=== PATIENT | female | born 1990 | race Caucasian/White ===

== ENCOUNTER 2017-03-02 11:56 | Emergency (ER) | payer OTHER ==
[~2017-03-02] VITALS: Ht 157.5 cm; Wt 66.0 kg
[2017-03-02] MEDS ORDERED: HYDROmorphone INJ 1 MG/ML SYR IV STA (12:01)
[2017-03-02] MEDS ORDERED: PROCHLORPERAZINE 5 MG/ML 2 ML VIAL IV STA (12:01)
[2017-03-02] MEDS ORDERED: SODIUM CHLORIDE 0.9% 1000ML 1,000 ML IV STA (12:01)
[2017-03-02 12:20] VITALS: Ht 157.5 cm; Wt 66.0 kg
[2017-03-02 12:20] LABS: HEMATOCRIT 29.6 % (37-47); MEAN CELL VOLUME 95.5 fL (80-100); MEAN CORPUSCULAR HEMOGLOBIN 31.9 pg (25-34); MEAN CORPUSCULAR HGB CONC 33.4 g/dl (32-36); MEAN PLATELET VOLUME 9.1 fL (7.4-10.4); PLATELET COUNT 220 K/uL (130-400); WHITE BLOOD COUNT 13.08 K/uL (4.8-10.8)
--- NOTE | 2017-03-02 12:35 | EMERGENCY ROOM VISIT NOTE ---
History Report prepared by Millie: Randall Parikh Under the Supervision of: Dr. George Alvarez M.D. First contact with patient: 11:59 Stated Complaint: ABDOMINAL PAIN History of Present Illness The patient is a 26 year old male who presents to the Emergency Room with complaints of constant abdominal pain that started this morning. The patient states that she is currently , though she has had ultrasounds, and they have not been able to find a heart beat. Her last period was December 31, and she was not taking any fertility drugs. She states that this is her third , and she has one living child and a termination. She additionally notes that she has been constipated recently, and she had tried to use a suppository and an enema. The patient states that the pain is worse when she is breathing, and she is currently nauseous. The patient's friend additionally states that the patient lost consciousness and blacked out earlier due to the pain. The patient denies any vaginal bleeding and any past abdominal surgeries. Source of History: patient Onset: this morning Position: abdomen Timing: constant Modifying Factors (Worsening): breathing Associated Symptoms: + LOC, + nausea Review of Systems See HPI for pertinent positives & negatives. A total of 10 systems reviewed and were otherwise negative. Past Medical & Surgical Medical Problems: (1) Termination of Family History Patient reports no known family medical history. Social History Marital Status: single Occupation Status: employed Current/Historical Medications Scheduled Docusate Sodium (Colace), 1 CAP PO BID Folic Acid (Folvite), 1 MG PO DAILY Venlafaxine Hcl (Venlafaxine Extended Rel), 2 CAP PO DAILY Scheduled PRN Oxycodone/Acetaminophen 5MG/325MG (Percocet 5MG/325MG), 1 TABLET PO Q4H PRN for Pain Trazodone Hcl (Trazodone), 50 MG PO for Pain Allergies Coded Allergies: Penicillins (Unverified Allergy, Severe, RASH, 03/02/17) Physical Exam Vital Signs Date Time Temp Pulse Resp B/P (MAP) Pulse Ox O2 Delivery O2 Flow Rate FiO2 03/02/17 15:48 36.4 72 20 104/63 100 Room Air 03/02/17 15:48 36.4 72 20 104/63 (77) 100 Room Air 10 03/02/17 15:40 74 16 112/58 100 Room Air 03/02/17 15:30 72 20 112/58 100 Room Air 03/02/17 15:20 72 20 115/65 100 Oxymask 10 03/02/17 15:10 82 20 117/67 100 Oxymask 10 03/02/17 15:03 36.4 83 20 123/68 100 Oxymask 10 03/02/17 13:20 62 16 97/53 97 03/02/17 13:15 60 22 97/53 96 03/02/17 13:00 58 22 102/58 100 03/02/17 12:43 61 18 110/53 97 Room Air 03/02/17 12:07 36.6 60 20 101/70 100 Room Air 03/02/17 12:07 100 Room Air 03/02/17 12:05 54 Physical Exam GENERAL: Patient is a healthy-appearing well-nourished female HEAD: Normocephalic atraumatic EYES: Ocular movements intact pupils equal and react to light OROPHARYNX mucous membranes are moist no exudates present no erythema or edema present NECK: Supple no nuchal rigidity CHEST: Good equal expansion LUNGS: Clear and equal to auscultation CARDIAC: Normal S1 and S2 ABDOMEN: Exquisite tenderness to palpation. The patient's pain is out of proportion to the exam. Soft no guarding BACK: No CVA tenderness EXTREMITIES: No pain upon palpation normal muscle strength in all groups no clubbing cyanosis or edema NEURO: Patient is following commands and answering questions appropriately. Alert and oriented x3 Cranial Nerves 2-12 grossly intact Medical Decision & Procedures ER Provider Diagnostic Interpretation: Radiology results as stated below per my review and radiologist interpretation: <14 WKS SINGLE, PELVIC ULTRASOUND HISTORY: Pt c/o diffuse abdominal pain TECHNIQUE: Transabdominal scanning of the pelvis was performed. COMPARISON STUDY: None. FINDINGS: The uterus measures 7.8 x 4.8 x 5.8 cm. The endometrial stripe is heterogeneous and thickened up to 1.6 cm. Small amount of fluid within the endometrium. Within the left adnexa there is a 4.0 x 3.4 x 3.5 cm gestational sac containing a pole and yolk sac. The heart rate is [address] [place]-rump length is 1.48 cm. This is consistent with a 7 week and 6 day ectopic . Complex fluid within the left adnexa consistent with hemorrhage. The patient's LIVE GAMES DEALER was in the room during scanning and into the examination early to take the patient to the operating room. IMPRESSION: Left adnexal ectopic as described above with a small to moderate amount of hemoperitoneum consistent with a ruptured ectopic . The patient's physician was in the room during scanning and immediately went to the operating room following the scan. Electronically signed by: Donny Lamar M.D. 03/02/2017 1:03 PM Dictated Date/Time: 03/02/2017 12:59 PM Laboratory Results 03/02/17 12:11 Red Blood Count 3.10, Mean Corpuscular Volume 95.5, Mean Corpuscular Hemoglobin 31.9, Mean Corpuscular Hemoglobin Concent 33.4, Mean Platelet Volume 9.1, Neutrophils (%) (Auto) 82.2, Lymphocytes (%) (Auto) 9.9, Monocytes (%) (Auto) 6.7, Eosinophils (%) (Auto) 0.6, Basophils (%) (Auto) 0.2, Neutrophils # (Auto) 10.76, Lymphocytes # (Auto) 1.30, Monocytes # (Auto) 0.87, Eosinophils # (Auto) 0.08, Basophils # (Auto) 0.02 03/02/17 14:35 03/02/17 12:11 Test 03/02/17 12:11 03/02/17 12:24 White Blood Count 13.08 K/uL (4.8-10.8) Red Blood Count 3.10 M/uL (4.2-5.4) Hemoglobin 9.9 g/dL (12.0-16.0) Hematocrit 29.6 % (37-47) Mean Corpuscular Volume 95.5 fL (80-100) Mean Corpuscular Hemoglobin 31.9 pg (25-34) Mean Corpuscular Hemoglobin Concent 33.4 g/dl (32-36) Platelet Count 220 K/uL (130-400) Mean Platelet Volume 9.1 fL (7.4-10.4) Neutrophils (%) (Auto) 82.2 % Lymphocytes (%) (Auto) 9.9 % Monocytes (%) (Auto) 6.7 % Eosinophils (%) (Auto) 0.6 % Basophils (%) (Auto) 0.2 % Neutrophils # (Auto) 10.76 K/uL (1.4-6.5) Lymphocytes # (Auto) 1.30 K/uL (1.2-3.4) Monocytes # (Auto) 0.87 K/uL (0.11-0.59) Eosinophils # (Auto) 0.08 K/uL (0-0.5) Basophils # (Auto) 0.02 K/uL (0-0.2) RDW Standard Deviation 44.7 fL (36.4-46.3) RDW Coefficient of Variation 12.9 % (11.5-14.5) Immature Granulocyte % (Auto) 0.4 % Immature Granulocyte # (Auto) 0.05 K/uL (0.00-0.02) Prothrombin Time 10.9 SECONDS (9.0-12.0) Prothromb Time International Ratio 1.0 (0.9-1.1) Activated Partial Thromboplast Time 23.0 SECONDS (21.0-31.0) Partial Thromboplastin Ratio 0.9 Est Creatinine Clear Calc Drug Dose 93.0 ml/min Estimated GFR () 115.4 Estimated GFR (Non- 99.5 BUN/Creatinine Ratio 11.8 (10-20) Calcium Level 7.5 mg/dl (8.5-10.1) Total Bilirubin 0.5 mg/dl (0.2-1) Aspartate Amino Transf (AST/SGOT) 10 U/L (15-37) Alanine Aminotransferase (ALT/SGPT) 14 U/L (12-78) Alkaline Phosphatase 48 U/L (45-117) Total Protein 5.7 gm/dl (6.4-8.2) Albumin 3.1 gm/dl (3.4-5.0) Globulin 2.6 gm/dl (2.5-4.0) Albumin/Globulin Ratio 1.2 (0.9-2) Human Chorionic Gonadotropin, Quant 36743 mIU/mL Bedside Hemoglobin 9.9 g/dl (12.0-16.0) Bedside Hematocrit 29 % (37-47) Bedside Sodium 140 mEq/L (135-144) Bedside Potassium 3.7 mEq/L (3.3-5.0) Bedside Chloride 104 mEq/L (101-112) Bedside Total CO2 23 mEq/l (24-31) Anion Gap 17.0 mmol/L (16-25) Bedside Blood Urea Nitrogen 8 mg/dl (7-18) Bedside Creatinine 0.9 mg/dl (0.6-1.3) Bedside Glucose (other) 105 mg/dl (70-99) Bedside Ionized Calcium (Nathan) 1.12 mmol/l (1.12-1.32) Labs reviewed by ED physician. Medications Administered Medications (Trade) Dose Ordered Sig/Laurie Route Start Time Stop Time Status Last Admin Dose Admin Hydromorphone HCl (Dilaudid Inj) 1 mg NOW STAT IV 03/02/17 12:01 03/02/17 12:04 DC 03/02/17 12:10 1 MG Prochlorperazine Edisylate (Compazine Inj) 5 mg NOW STAT IV 03/02/17 12:01 03/02/17 12:04 DC 03/02/17 12:09 5 MG Sodium Chloride 1,000 ml @ 999 mls/hr Q1H1M STAT IV 03/02/17 12:01 03/02/17 13:01 DC 03/02/17 12:09 999 MLS/HR ED Course 1159: Past medical records reviewed. The patient was evaluated in room B11. A complete history and physical examination was performed. FAST exam was positive. 1201: Sodium Chloride 1000 ml @ 999 mls/hr, Compazine 5mg IV, Dilaudid 1mg IV 1210: I discussed the patient's case with Dr. Lala, LIVE GAMES DEALER, and she will com in to evaluate the patient, and the recommends taking the patient to the OR. Medical Decision Differential diagnosis: Etiologies such as ectopic , appendicitis, diverticulitis, PUD, biliary pathology, UTI, pancreatitis, obstruction, mesenteric ischemia, aortic pathology, infections, inflammatory bowel disease, renal colic, as well as others were entertained. This is a 26-year-old female who presents emergency department after syncopal episode after the onset of severe abdominal pain at home. Upon arrival to the emergency department the patient is hypotensive and has severe pain on abdominal examination. Based on this I FAST exam was immediately initiated and the patient has free fluid in her abdomen. I believe that the patient has a ruptured ectopic and immediately called Dr Beth. The patient was typed and screened and sent for an ultrasound patient was then sent to the operating room. An IV was established, the patient is given normal saline bolus , Dilaudid, Zofran. Repeat examination revealed improvement patient's symptoms. Medication Reconcilliation Current Medication List: was personally reviewed by me Blood Pressure Screening Patient's blood pressure: Normal blood pressure Consults Time Called: 1209 Consulting Physician: Dr. Lala, LIVE GAMES DEALER Returned Call: 1210 I discussed the patient's case with Dr. Lala, LIVE GAMES DEALER, and she will com in to evaluate the patient, and the recommends taking the patient to the OR. Impression Primary Impression: Ruptured ectopic Critical Care I have personally spent greater than 30 minutes of critical care time in the direct management of this patient. This includes bedside care, interpretation of diagnostic studies, and testing, discussion with consultants, patient, and family members, and other required patient management activities. This 30 minutes is in excess of all separately billable procedures. Scribe Attestation The scribe's documentation has been prepared under my direction and personally reviewed by me in its entirety. I confirm that the note above accurately reflects all work, treatment, procedures, and medical decision making performed by me. Departure Information Dispostion Being Evaluated By Surgeon Prescriptions Oxycodone/Acetaminophen 5MG/325MG (PERCOCET 5MG/325MG) Tab 1 TABLET PO Q4H Y for Pain, #10 TAB Prov: Shanti Lala MD 03/02/17
[2017-03-02 12:36] LABS: PARTIAL THROMBOPLASTIN RATIO 0.9; PROTHROMBIN TIME (PATIENT) 10.9 SECONDS (9.0-12.0)
[2017-03-02 12:36] LABS: ISTAT CREATININE 0.9 mg/dl (0.6-1.3); ISTAT HEMOGLOBIN 9.9 g/dl (12.0-16.0); ISTAT IONIZED CALCIUM 1.12 mmol/l (1.12-1.32)
[2017-03-02 12:40] LABS: BASO % 0.2 %; BASO ABS # 0.02 K/uL (0-0.2); COMPLETE YES; EOS % 0.6 %; IG% 0.4 %; LYMPH % 9.9 %; MONO % 6.7 %; NEUT % 82.2 %
[2017-03-02 12:41] LABS: BUN/CREATININE RATIO 11.8 (10-20); CALCIUM 7.5 mg/dl (8.5-10.1); CREATININE 0.81 mg/dl (0.60-1.20)
[2017-03-02 12:44] LABS: ALB/GLOB RATIO 1.2 (0.9-2)
[2017-03-02] MEDS ORDERED: LACTATED RINGER'S 1000ML 1,000 ML IV SCH (12:46)
--- NOTE | 2017-03-02 13:04 | DIAGNOSTIC IMAGING REPORT ---
<14 WKS SINGLE, PELVIC ULTRASOUND HISTORY: Pt c/o diffuse abdominal pain TECHNIQUE: Transabdominal scanning of the pelvis was performed. COMPARISON STUDY: None. FINDINGS: The uterus measures 7.8 x 4.8 x 5.8 cm. The endometrial stripe is heterogeneous and thickened up to 1.6 cm. Small amount of fluid within the endometrium. Within the left adnexa there is a 4.0 x 3.4 x 3.5 cm gestational sac containing a pole and yolk sac. The heart rate is 144 bpm. [place]-rump length is 1.48 cm. This is consistent with a 7 week and 6 day ectopic . Complex fluid within the left adnexa consistent with hemorrhage. The patient's MINE MOTOR ENGINEER was in the room during scanning and into the examination early to take the patient to the operating room. IMPRESSION: Left adnexal ectopic as described above with a small to moderate amount of hemoperitoneum consistent with a ruptured ectopic . The patient's physician was in the room during scanning and immediately went to the operating room following the scan. Electronically signed by: Donny Lamar M.D. 03/02/2017 1:03 PM Dictated Date/Time: 03/02/2017 12:59 PM
[2017-03-02] MEDS ORDERED: PROPOFOL IV EMULSION 10 MG/ML 20 ML VIAL IV ONE ×2 (13:05→15:23)
[2017-03-02] MEDS ORDERED: DEXAMETHASONE SOD INJ 4 MG/ML VIAL ONE ×2 (13:05→14:05)
[2017-03-02] MEDS ORDERED: PHENYLEPHRINE HCL INJ 10 MG/ML VIAL ONE (13:05)
[2017-03-02] MEDS ORDERED: GLYCOPYRROLATE INJ 0.2 MG/ML VIAL ONE (13:05)
[2017-03-02] MEDS ORDERED: EpHEDrine SULFATE INJ 50 MG/ML AMP ONE (13:05)
[2017-03-02] MEDS ORDERED: LIDOCAINE HCL 2% 2 ML VIAL (20MG/ML) ONE (13:05)
[2017-03-02] MEDS ORDERED: NEOSTIGMINE METHYLSULFATE 5 MG/5 ML SYR ONE (13:05)
[2017-03-02] MEDS ORDERED: ONDANSETRON INJ 2 MG/ML 2 ML VIAL ONE (13:05)
[2017-03-02] MEDS ORDERED: SUCCINYLCHOLINE CHLORIDE 20 MG/ML 10 ML VIAL IV ONE (13:05)
[2017-03-02] MEDS ORDERED: FENTANYL CITRATE INJ 50 MCG/1 ML 2 ML VIAL ONE (13:06)
[2017-03-02] MEDS ORDERED: MIDAZOLAM HCL 1 MG/ML 2ML VIAL ONE ×2 (13:06→13:10)
[2017-03-02 13:20] VITALS: O2SAT 97
[2017-03-02] MEDS ORDERED: FOLI1TAB7 PO (13:21)
[2017-03-02] MEDS ORDERED: VENL37.593 PO (13:21)
[2017-03-02] MEDS ORDERED: DOCU-94 PO (13:21)
--- NOTE | 2017-03-02 13:37 | HISTORY & PHYSICAL EXAMINATION ---
DATE OF ADMISSION: 03/02/2017 CHIEF COMPLAINT: Abdominal pain and syncopal episode in the setting of early . HISTORY OF PRESENT ILLNESS: This is a 26-year-old female G3, P1-0-1-1 with 1 living child and 1 termination, who presents with a complaint of acute onset of abdominal pain this morning followed by a syncopal episode. The patient relates that she is currently with an LMP around mid December and a likely timing of conception at the very end of December. Of note, the patient is stationed with the in [facility]. She states that she has received limited care through the systems; however, on ultrasound previously done by the , they were unable to identify a heartbeat nor confirm intrauterine location of the . REVIEW OF SYSTEMS: Negative other than what is discussed above. SOCIAL HISTORY: This is a single female in the located in [facility]; however, returned to [place] due to family in the local area and she is accompanied today by her sister. ALLERGIES: PENICILLIN, WHICH CAUSES A RASH. CURRENT MEDICATIONS: Include Wellbutrin, trazodone as needed, vitamin and an iron supplement. PAST MEDICAL HISTORY: She denies any medical problems. PAST SURGICAL HISTORY: Includes breast augmentation, wisdom teeth and tonsils and adenoids. FAMILY HISTORY: Noncontributory. PHYSICAL EXAMINATION: VITAL SIGNS: In the ER, she has a temperature of 36.6, pulse of 60, respiration of 20, BP of 101/70, and pulse ox is 100% on room air. GENERAL: As I examined the patient, she is in the ultrasound suite undergoing a transabdominal ultrasound. She is lying supine. She is a well-nourished appearing female of stated age, in some discomfort. HEAD: Normocephalic. NECK: Supple. CHEST: Nontender with good bilateral expansion. Lungs are not auscultated at this time; however, her respirations are nonlabored and normal in rate. ABDOMEN: Soft, but exquisitely tender. The patient is grimacing and wincing as the transabdominal ultrasound is done. She is apparently more tender with pressing in the left lower quadrant; however, she is sensitive to any pressure on the entire abdomen. Although, I am asking her questions as she is undergoing the exam and successfully distracting her. It is evident that she is in legitimate discomfort. She continues to react to the exam even while attempting to answer my questions. EXTREMITIES: Appear normal. NEUROLOGIC: The patient has no obvious deficits. PSYCHIATRIC: The patient is in an appropriate mood and affect. She is able to answer my questions appropriately. LABORATORY DATA: Results include a white count of 13, hemoglobin of 9.9, and platelets of 220. Coag profile appears normal. Chemistries appeared normal. Blood type is pending however the patient states confidently that she is B positive and did NOT require rhogam with prior pregnancies. MEDICATIONS: I note that the patient was given 1 mg of IV Dilaudid prior to her ultrasound, which should be impacting her as I am examining her. She states that the pain is improved from what it was prior; however, obviously it has not gone. IMAGING STUDIES: FAST scan done in the ER by Dr. Alvarez was notable for significant free fluid in the abdomen. The pelvic ultrasound, which I watched in realtime, appears to show an obvious fetus in what appears to be the left tube with a normal heartbeat. The fetus is measuring 7 weeks 6 days crown rump length with a heartbeat in the 140s. The total size is approximately 3.5 x 4 cm. There is a significant free fluid around both the right and left adnexa and the uterus filling the pelvis. ASSESSMENT AND PLAN: This is a 26-year-old G3, P1-0-1-1 at approximately 8 weeks, who appears to have a rupturing left ectopic . I have discussed my findings with the patient. She is in agreement with the plan to go to the operating room for a laparoscopic left salpingectomy, possible conversion to laparotomy with evacuation of hemoperitoneum. She and her sister were both present for discussion of the risks and benefits of surgery. They asked appropriate questions and they did sign consent. They do understand that there is a risk for conversion to open procedure, which I estimated at about 5% given the extraordinary size of her hemoperitoneum. In addition, they understand that there may be an impact on her future fertility, although we do expect that she will retain at least 1 functional tube and most likely 2 ovaries. JULIETH
[2017-03-02] MEDS ORDERED: RANITIDINE HCL 25 MG/ML INJ ONE (14:05)
[2017-03-02] MEDS ORDERED: ROCURONIUM BROMIDE 10 MG/ML 5 ML VIAL IV ONE (14:29)
[2017-03-02] MEDS ORDERED: LABETALOL HCL IV 5 MG/ML 20ML IV PRN (14:45)
[2017-03-02] MEDS ORDERED: HYDROmorphone INJ 1 MG/ML SYR IV PRN (14:45)
[2017-03-02] MEDS ORDERED: EpHEDrine SULFATE INJ 50 MG/ML AMP IV PRN (14:45)
[2017-03-02] MEDS ORDERED: MEPERIDINE HCL 25 MG/ML CARP IV PRN (14:45)
[2017-03-02] MEDS ORDERED: ONDANSETRON INJ 2 MG/ML 2 ML VIAL IV PRN (14:45)
[2017-03-02] MEDS ORDERED: ATROPINE SULFATE 0.1 MG/ML 5ML SYR IV PRN (14:45)
[2017-03-02] MEDS ORDERED: FENTANYL CITRATE INJ 50 MCG/1 ML 2 ML VIAL IV PRN (14:45)
[2017-03-02] MEDS ORDERED: SODIUM CHLORIDE 0.9% 1000ML 1,000 ML IV SCH (15:09)
[2017-03-02] MEDS ORDERED: OXYC-57 PO ×2 (15:11→15:39)
--- NOTE | 2017-03-02 15:14 | Discharge Instructions ---
Discharge Instructions Date of Service Mar 02, 2017. Visit Reason for Visit: Abdominal Pain Discharge Discharge Diagnosis / Problem: Ruptured ectopic Discharge Goals Goal(s): Specific goals Activity Recommendations Activity Limitations: per Instructions/Follow-up section Anesthesia . Post Anesthesia Instructions: If you have had General Anesthesia or IV Sedation: * Do not drive today. * Resume driving when surgeon permits. * Do not make important decisions or sign legal documents today. * Call surgeon for: 1. Temperature elevations greater than 101 degrees F. 2. Uncontrollable pain. 3. Excessive bleeding. 4. Persistent nausea and vomiting. 5. Medication intolerance (nausea, vomiting or rash). * For nausea and vomiting use only clear liquids such as: tea, soda, bouillon until nausea subsides, then gradually increase diet as tolerated. * If you have any concerns or questions, call your surgeon's office. If physician is unavailable and it is an emergency, call 911 or go to the nearest emergency room. . Instructions / Follow-Up Instructions / Follow-Up ACTIVITY RECOMMENDATIONS: * Rest the first 2 days. You should be back to your normal activity levels by day 3, but I'd like you to stay home and rest here in [place] for one week before flying back to [place]. * No heavy lifting for 2 weeks. * No intercourse, tampons or douching for 2 weeks. * You may shower the next day. * Do not drive anytime that you are taking narcotic pain medicines. DIET: Nausea may occur in the immediate post-operative period. If so, take clear liquids such as tea, bouillon, apple juice until all nausea has subsided, then resume usual diet. MEDICATIONS: Resume previous medications unless instructed otherwise by your surgeon. Ibuprofen 200mg 2-3 tablets every 4-6 hours as needed -- OR -- Aleve 2 tablets every 8-12 hours as needed for post-operative discomfort Medications are over the counter. Tylenol may be used if above medications are contraindicated or not preferred. Medication should be taken with food or milk. Do not take on an empty stomach. I have provided 10 tablets of percocet to be used in the first 2 days postoperatively if the above meds are not sufficient to control your pain. SPECIAL CARE INSTRUCTIONS: * Check temperature twice daily for one week. report any elevation over 101 degrees. * You may experience some vagina spotting and/or bleeding. This is normal for 1 -2 weeks and should not be heavier than a normal period. If it is unusual in amount, call your physician. * Post-operative discomfort may consist of a sore throat, a "bloated" feeling and pain in the shoulders. These are normal symptoms, which usually only last for 2-3 days. FOLLOW UP VISIT: Call your doctor's office for a post-operative 4 week visit if not already scheduled. You will need to see an PRODUCE FIELD MERCHANDISER in [place] if you have already returned there by this time. Please avoid until after your menses have returned, which may take up to 3 months. If you have problems in the coming week, or before you return home, please contact my office at [phone] for help. Diet Recommendations Recommended Home Diet: no limitations, resume previous diet Procedures Procedures Performed: Laparoscopic Removal of Left Fallopian Tube with Ectopic Pending Studies Studies pending at discharge: no Medical Emergencies . Who to Call and When: Medical Emergencies: If at any time you feel your situation is an emergency, please call 911 immediately. . Non-Emergent Contact Non-Emergency issues call your: Primary Care Provider . . "Provider Documentation" section prepared by Shanti Lala. .
[2017-03-02] MEDS ORDERED: OXYCODONE/ACETAMINOPHEN 5-325 TAB PO PRN ×2 (15:15)
[2017-03-02] MEDS ORDERED: IBUPROFEN 600 MG TAB PO PRN (15:15)
[2017-03-02] MEDS ORDERED: KETOROLAC TROMETHAMINE 30 MG/ML VIAL IV. PRN (15:15)
--- NOTE | 2017-03-02 15:16 | [facility] Post Operative Brief Note ---
Immediate Operative Summary Operative Date Mar 02, 2017. Pre-Operative Diagnosis Ruptured Left Ectopic Post-Operative Diagnosis Ruptured Left Tubal Ectopic with 1.2L hemoperitoneum Procedure(s) Performed Laparoscopic Removal of Left Fallopian Tube with Ectopic Surgeon Dr. Lala Equipment Operating Engineer Surgeon(s) none Estimated Blood Loss Evacuated 1200 ml hemoperitoneum, 5 ml intraoperative blood loss Findings Large volume clotted hemoperitoneum. Normal bilateral ovaries, uterus, and R fallopian tube. Normal appendix, liver edge, RUQ. Left fallopian tube grossly dilated in its midportion. Gross examination of specimen reveals what appears to be placental / tissue. Specimens A. Left Fallopian Tube with Ectopic Complication(s) None Disposition Recovery Room / PACU
[2017-03-02 15:48] VITALS: BP 104/63; PULSE 72; TEMP 36.4; O2SAT 100
--- NOTE | 2017-03-02 16:04 | Anesthesiology Progress Note ---
Anesthesia Post Op Note Date & Time Mar 02, 2017 at 16:03 Vital Signs Pain Intensity: 0 Vital Signs Past 12 Hours Date Time Temp Pulse Resp B/P (MAP) Pulse Ox O2 Delivery O2 Flow Rate FiO2 03/02/17 15:48 36.4 72 20 104/63 100 Room Air 03/02/17 15:48 36.4 72 20 104/63 (77) 100 Room Air 10 03/02/17 15:40 74 16 112/58 100 Room Air 03/02/17 15:30 72 20 112/58 100 Room Air 03/02/17 15:20 72 20 115/65 100 Oxymask 10 03/02/17 15:10 82 20 117/67 100 Oxymask 10 03/02/17 15:03 36.4 83 20 123/68 100 Oxymask 10 03/02/17 13:20 62 16 97/53 97 03/02/17 13:15 60 22 97/53 96 03/02/17 13:00 58 22 102/58 100 03/02/17 12:43 61 18 110/53 97 Room Air 03/02/17 12:07 36.6 60 20 101/70 100 Room Air 03/02/17 12:07 100 Room Air 03/02/17 12:05 54 Notes Mental Status: alert / awake / arousable, participated in evaluation Pt Amnestic to Procedure: Yes Nausea / Vomiting: adequately controlled Pain: adequately controlled Airway Patency, RR, SpO2: stable & adequate BP & HR: stable & adequate Hydration State: stable & adequate Anesthetic Complications: no major complications apparent
--- NOTE | 2017-03-02 18:00 | OPERATIVE REPORT ---
DATE OF OPERATION: 03/02/2017 PREOPERATIVE DIAGNOSIS: Ruptured left ectopic . POSTOPERATIVE DIAGNOSIS: Ruptured left tubal ectopic with 1.2 L of hemoperitoneum. PROCEDURE: Laparoscopic left fallopian tube removed with ectopic . SURGEON: Dr. Shanti Lala. OIL LABORATORY ANALYST: None. ESTIMATED BLOOD LOSS: Evacuation of 1200 mL of hemoperitoneum with 5 mL of estimated actual intraoperative blood loss. FINDINGS: Large volume of clotted hemoperitoneum, normal bilateral ovaries, uterus and right fallopian tube, normal appendix, liver edge and right upper quadrant. The left fallopian tube was grossly dilated along its midportion. Gross examination of the left salpingectomy specimen reveals what appears to be placental/ tissue. SPECIMEN: Left fallopian tube with ectopic . COMPLICATIONS: None. DISPOSITION: Stable to recovery room. DESCRIPTION OF DESCRIPTION: Mitch was brought to the operating room and placed on the table in the dorsal lithotomy position using Yellofin stirrups. She was prepped and draped in standard sterile fashion and a hard time-out was taken prior to proceeding. A Cunha and an acorn uterine manipulator were placed in the usual manner. I changed gloves and then moved to the abdomen, where an umbilical entry was made using an 11 blade followed by optical entry using a 12-mm trocar and a 10-mm camera. Immediately upon entry to the abdomen, which was done without complication, a large amount of hemoperitoneum was encountered. The abdomen was insufflated and right and left lower quadrant ports were placed under direct visualization while the patient remained in a flat position to allow us to access the hemoperitoneum. We initially used a typical [place] suction state wildlife officer; however, this was insufficient to evacuate the large amount of clotted blood. Therefore, a 10-mm clot sucker was obtained and this was used to evacuate the hemoperitoneum in a very cautious manner. Once the vast majority of the blood and clot had been evacuated, the patient was then placed in steep Trendelenburg position. The bowel was swept out of the pelvis, allowing us to visualize the pelvic organs as previously described. The left fallopian tube was the obvious source of the difficulty with an ectopic grossly dilating its mid portion. The remainder of the pelvic organs did look normal. Harmonic scalpel was used to excise the left fallopian tube. This was then placed in an EndoCatch bag and retrieved from the abdomen without difficulty. The working site was flushed with saline and seen to be hemostatic. The patient was then gradually tilted back to a flat and then reverse Trendelenburg position allowing the remainder of the hemoperitoneum to be fully evacuated. Using the measuring device attached to our suction generator, we were able to measure the hemoperitoneum evacuated as 1200 mL. All instruments were then withdrawn. UR-6 was used to close the fascial layer at the umbilical and right lower quadrant ports. A 4-0 Monocryl was used at the umbilical and right lower quadrant ports. The left lower quadrant being only a 5-mm port, it did not require either of these treatments. All 3 sites were then closed with Dermabond dressing. The Cunha and acorn were removed. Of note, there was approximately 100 mL of a dark concentrated urine throughout the case. I asked a hemoglobin be drawn at the end of the case as I was suspicious that with such a large amount of hemoperitoneum, the patient's preoperative hemoglobin of 9.9 did not represent her true court. That hemoglobin has now been resulted as 7.8, which I do feel likely reflects her true court hemoglobin. The patient's vital signs have been stable and if she is feeling well, I do think that she will be stable for discharge as there is no reason to expect her to have any further blood losses. All of this has been communicated to the patient's family as well. She will be discharged home with Percocet for pain management as needed and instructions to remain hear in [place] for 1 week and the patient was scheduled to redeploy to her site in [facility] tomorrow. I have asked that she remain local for 1 week to allow us to rule out any acute difficulties in her postoperative recovery. At that point, if she wishes to return to [place] and is feeling well, I think that is appropriate and she has been instructed to have a 4-week followup with the HAND PACKER/PACKAGER of her choice in [facility] if indeed she has returned home by then. She has been provided with our offices phone number and instructions and how to recheck if she has any acute issues this week. Her family has also been instructed on the importance of the waiting normal menstrual cycle before the patient resumes attempting any and they have expressed understanding. I attest to the content of the Intraoperative Record and any orders documented therein. Any exception s are noted below.
[2017-03-03] MEDS ORDERED: TRAZ50TA35 PO (13:21)
[2017-03-03] MEDS ORDERED: BUPRTAB51 PO (16:16)
[2017-03-03] MEDS ORDERED: IBUP-1277 PO (16:16)
[2017-03-03] MEDS ORDERED: OXYC1TAB3 PO (19:59)
[2017-03-03] MEDS ORDERED: HYDR2TAB48 PO (19:59)
== END 2017-03-02 13:37 | disposition home or self-care (01) ==
LOC: EDSEX 11:58 → C.EDB 11:58
DX: O00.90 Unspecified ectopic pregnancy without intrauterine pregnancy (principal)

== ENCOUNTER 2017-03-03 14:50 | Emergency (ER) | payer OTHER ==
[~2017-03-03] VITALS: Ht 157.5 cm; Wt 66.7 kg
[~2017-03-03 14:50] MED LIST: DOCU-94 PO; FOLI1TAB7 PO; OXYC-57 PO; TRAZ50TA35 PO; VENL37.593 PO
[2017-03-03 14:55] VITALS: TEMP 37; Ht 157.5 cm; Wt 66.7 kg
[2017-03-03] MEDS ORDERED: HYDROmorphone INJ 1 MG/ML SYR IV STA ×2 (16:08→19:31)
[2017-03-03] MEDS ORDERED: ONDANSETRON INJ 2 MG/ML 2 ML VIAL IV STA (16:08)
[2017-03-03] MEDS ORDERED: SODIUM CHLORIDE 0.9% 1000ML 1,000 ML IV STA (16:08)
[2017-03-03] MEDS ORDERED: KETOROLAC TROMETHAMINE 30 MG/ML VIAL IV STA (16:08)
[2017-03-03] MEDS ORDERED: BUPRTAB51 PO (16:16)
[2017-03-03] MEDS ORDERED: IBUP-1277 PO (16:16)
[2017-03-03 16:40] LABS: BASO % 0.2 %; BASO ABS # 0.02 K/uL (0-0.2); EOS % 0.2 %; IG% 0.2 %; LYMPH % 16.2 %; LYMPH ABS # 2.15 K/uL (1.2-3.4); MEAN CELL VOLUME 95.4 fL (80-100); MEAN CORPUSCULAR HEMOGLOBIN 31.4 pg (25-34); MONO % 7.3 %; NEUT % 75.9 %; PLATELET COUNT 233 K/uL (130-400); RED BLOOD COUNT 2.83 M/uL (4.2-5.4); WHITE BLOOD COUNT 13.24 K/uL (4.8-10.8)
[2017-03-03 16:49] LABS: PARTIAL THROMBOPLASTIN RATIO 0.9; PROTHROMBIN TIME (PATIENT) 10.5 SECONDS (9.0-12.0)
[2017-03-03 17:27] LABS: COMPLETE YES; POLYCHROMASIA 1+
[2017-03-03 17:36] LABS: ALB/GLOB RATIO 1.2 (0.9-2); BUN/CREATININE RATIO 6.8 (10-20); CALCIUM 8.5 mg/dl (8.5-10.1); CREATININE 0.89 mg/dl (0.60-1.20)
[2017-03-03] MEDS ORDERED: HYDROmorphone INJ 0.5 MG/0.5 ML SYR IV STA (17:43)
[2017-03-03] MEDS ORDERED: OPTIRAY 320 IV PRN (18:00)
[2017-03-03 18:02] LABS: URINE APPEARANCE CLEAR (CLEAR); URINE BILIRUBIN NEG (NEG); URINE COLOR YELLOW; URINE NITRITE NEG (NEG); URINE SPECIFIC GRAVITY 1.014 (1.000-1.030); UROBILINOGEN NEG (NEG)
[2017-03-03 18:06] LABS: MANUAL MICROSCOPIC REQUIRED? NO; REVIEW REQ? NO
--- NOTE | 2017-03-03 18:48 | DIAGNOSTIC IMAGING REPORT ---
ABD/PELVIS IV CONTRAST ONLY HISTORY: 26 years-old Female EVAL ABD PAIN acute generalized abdominal pain. History of recent ectopic with surgery. COMPARISON: Pelvic ultrasound 03/02/2017 TECHNIQUE: Multiple axial CT images of the abdomen and pelvis were obtained following the intravenous administration of 93 mL Optiray 320. A dose lowering technique was used consistent with the principals of AHSAN. FINDINGS: Subsegmental consolidative and groundglass opacities are present within the right greater than left lung bases. Imaged inferior cardiac chambers are unremarkable. Bilateral breast augmentation devices are present, partially imaged. Extensive pneumoperitoneum. Additionally, there is a large amount of subcutaneous and deep tissue air along the right anterior abdominal wall with apparent air-filled tract extending to the skin surface as seen on image 289 of series 3. The liver, spleen, pancreas and adrenal glands are within normal limits. Gallbladder is also unremarkable. There is of cortical thinning are present within the interpolar and superior pole left kidney which may reflect areas of prequel scarring. 5 mm low attenuating lesion of the inferior pole left kidney suggests cyst. There is a complex cystic lesion or alternatively multiple adjacent clustered cysts overall measuring up to 1.6 x 1.8 x 1.9 cm involving the anterior interpolar right kidney. No renal calculi or hydronephrosis identified. Mild urothelial enhancement is seen involving the right ureter with mild periureteral stranding/edema. Left ureter and urinary bladder are unremarkable. Trace fluid is present within the endocervical canal. Mild amount of free pelvic fluid is present. Peripherally enhancing structure within the region of the left adnexum is seen, 1.5 cm on image 339 of series 3. Mild amount of free fluid is seen along the right paracolic gutter. No bowel obstruction. No evidence of acute appendicitis. Bones appear intact. IMPRESSION: 1. Extensive pneumoperitoneum, likely postsurgical related to recent gynecologic surgery. Additionally, there is a large amount of subcutaneous and deep tissue air along the right anterior abdominal wall with apparent air-filled tract extending to the skin surface as above. 2. Mild amount of fluid within the dependent pelvis and tracking along the right pericolic gutter, likely reactive and/or related to recent ruptured ectopic gestation. 3. 1.5 cm peripherally enhancing lesion of the left adnexum may reflect a corpus luteal cyst and can be followed with ultrasound. 4. Mild right ureteral dilation with urothelial enhancement is suspicious for ureteritis. Correlate with urinalysis. 5. Complex cystic lesion or cluster of adjacent cysts within the interpolar right kidney measuring up to 1.9 cm is nonspecific. This should be further evaluated with ultrasound and possibly with CT renal protocol. The above report was generated using voice recognition software. It may contain grammatical, syntax or spelling errors. Electronically signed by: Ronald Lackey M.D. 03/03/2017 6:46 PM Dictated Date/Time: 03/03/2017 6:33 PM
[2017-03-03] MEDS ORDERED: HYDR2TAB48 PO (19:59)
[2017-03-03] MEDS ORDERED: OXYC1TAB3 PO (19:59)
--- NOTE | 2017-03-03 20:01 | EMERGENCY ROOM VISIT NOTE ---
History First contact with patient: 15:46 Chief Complaint: ABDOMINAL PAIN Stated Complaint: SEVERE AB PAIN, HARD TO BREATH, SEEN YESTERDAY Nursing Triage Summary: Seen yesterday for ectopic pregancy rupture, surgery yesterday as well. Pt using prescribed pain meds at home with no relief. c/o pain abd pain, difficulty with deep breathin d/t pain. History of Present Illness Patient is a Ab2 26-year-old white female patient who is postop day #1 from left salpingectomy for a ruptured ectopic . Procedure was performed yesterday by Dr. Lala. Patient reports she was told the procedure went as expected. She was discharged from our facility around 5:30 PM yesterday. She states that she was "pretty out of it." She states that when she got home, she had fairly severe pain. She notes diffuse pain across her entire abdomen that radiates up towards her ribs. She also has discomfort in her upper chest and shoulders. The pain is better when she sits upright, and worse when she tries to lay flat or reclining. Her sister did talk to Dr. Lala last evening. Patient took Percocet 5/325 mg 2 tablets every 4 hours and ibuprofen 400 mg every 6 hours. This helped to alleviate the pain just slightly to the point where the patient was able to sleep a little bit, but the pain returned this morning after she showered. Her last pain pills were about 5 -1/2 hours ago, at 10:30. She states that she is now out of Percocet. She tried applying heat to the abdomen as well without relief. She states her chest feels tight, when she tries to breathe and she has pain in her lower ribs with deep inspiration. She states her abdominal pain is sharp and stabbing. She rates it an 8/10. She is not having any vaginal bleeding or discharge. She has been urinating. She reports nausea and anorexia. She has not had any fevers. She denies a cough. Review of Systems Review of systems as per HPI. All other systems reviewed were negative. 10 systems reviewed. Past Medical/Surgical History Medical Problems: (1) Depression (2) Ruptured ectopic Surgical Problems: (1) H/O unilateral salpingectomy (2) History of breast augmentation (3) History of tonsillectomy and adenoidectomy (4) History of wisdom tooth extraction (5) Termination of Electronic medical records are reviewed and summarized as above/below. See Problem List. Family History Patient reports no known family medical history. Social History Smoking Status: Never Smoker Marital Status: single Occupation Status: employed Current/Historical Medications Scheduled Bupropion (Wellbutrin-Xl), 300 MG PO DAILY Scheduled PRN Hydromorphone Hcl (Dilaudid), 2 MG PO Q4 PRN for Pain Ibuprofen (Advil), 400 MG PO Q6H PRN for Pain Oxycodone Immediate Rel Tab (Roxicodone Ir), 1-2 TAB PO Q4H PRN for Severe Pain Oxycodone/Acetaminophen 5MG/325MG (Percocet 5MG/325MG), 1 TABLET PO Q4H PRN for Pain Trazodone Hcl (Trazodone), 50 MG PO HS PRN for Sleep Physical Exam Vital Signs Date Time Temp Pulse Resp B/P (MAP) Pulse Ox O2 Delivery O2 Flow Rate FiO2 03/03/17 20:18 69 18 109/55 98 03/03/17 19:44 69 18 109/55 98 Room Air 03/03/17 18:33 64 18 117/76 100 03/03/17 16:38 62 03/03/17 16:31 67 18 106/60 100 03/03/17 14:55 37.0 75 18 118/77 100 Room Air Physical Exam CONSTITUTIONAL: Patient is a mildly uncomfortable appearing 26-year-old white female who is awake and alert and sitting on the gurney in no acute distress. Her vital signs are stable. EYES: Pupils equal, round, reactive to light and accommodation. EOMs intact without nystagmus. Sclera are anicteric. ENT: Tympanic membranes intact, with normal landmarks. External canals are clear. Oral and nasopharynx are clear. Mucous membranes are moist, no lesions , tongue and gums appear normal. NECK: Supple without lymphadenopathy. No thyromegaly. No meningeal signs. Full active range of motion without discomfort. CARDIOVASCULAR: Regular rate and rhythm, with normal S1 and S2, no murmur or gallop or rub is heard. No carotid bruits auscultated. No JVD. Peripheral pulses easy to palpable. RESPIRATORY: Breath sounds equal and clear to auscultation without wheezes, rales, or rhonchi heard. Full and equal chest expansion without accessory muscle use or retractions. GI: Bowel sounds are present. Well-healed surgical scars are noted, without erythema, drainage or discharge. Abdomen is soft,, slightly distended, tender to palpation throughout. No guarding or rigidity. Subcutaneous emphysema is palpable on exam. MUSCULOSKELETAL: Full range of motion of extremities x 4 with good strength. No cyanosis, edema, joint tenderness or swelling. No deformity. INTEGUMENTARY: No lesions or rash, normal skin turgor. NEUROLOGICAL: Alert, oriented, and cooperative. Cranial nerves, sensation and strength grossly intact. Pupils round, equal, and react to light, EOMs are full. LYMPH: No lymphadenopathy. Medical Decision & Procedures ER Provider Diagnostic Interpretation: ABD/PELVIS IV CONTRAST ONLY HISTORY: 26 years-old Female EVAL ABD PAIN acute generalized abdominal pain. History of recent ectopic with surgery. COMPARISON: Pelvic ultrasound 03/02/2017 TECHNIQUE: Multiple axial CT images of the abdomen and pelvis were obtained following the intravenous administration of 93 mL Optiray 320. A dose lowering technique was used consistent with the principals of ALARA. FINDINGS: Subsegmental consolidative and groundglass opacities are present within the right greater than left lung bases. Imaged inferior cardiac chambers are unremarkable. Bilateral breast augmentation devices are present, partially imaged. Extensive pneumoperitoneum. Additionally, there is a large amount of subcutaneous and deep tissue air along the right anterior abdominal wall with apparent air-filled tract extending to the skin surface as seen on image 289 of series 3. The liver, spleen, pancreas and adrenal glands are within normal limits. Gallbladder is also unremarkable. There is of cortical thinning are present within the interpolar and superior pole left kidney which may reflect areas of prequel scarring. 5 mm low attenuating lesion of the inferior pole left kidney suggests cyst. There is a complex cystic lesion or alternatively multiple adjacent clustered cysts overall measuring up to 1.6 x 1.8 x 1.9 cm involving the anterior interpolar right kidney. No renal calculi or hydronephrosis identified. Mild urothelial enhancement is seen involving the right ureter with mild periureteral stranding/edema. Left ureter and urinary bladder are unremarkable. Trace fluid is present within the endocervical canal. Mild amount of free pelvic fluid is present. Peripherally enhancing structure within the region of the left adnexum is seen, 1.5 cm on image 339 of series 3. Mild amount of free fluid is seen along the right paracolic gutter. No bowel obstruction. No evidence of acute appendicitis. Bones appear intact. IMPRESSION: 1. Extensive pneumoperitoneum, likely postsurgical related to recent gynecologic surgery. Additionally, there is a large amount of subcutaneous and deep tissue air along the right anterior abdominal wall with apparent air-filled tract extending to the skin surface as above. 2. Mild amount of fluid within the dependent pelvis and tracking along the right pericolic gutter, likely reactive and/or related to recent ruptured ectopic gestation. 3. 1.5 cm peripherally enhancing lesion of the left adnexum may reflect a corpus luteal cyst and can be followed with ultrasound. 4. Mild right ureteral dilation with urothelial enhancement is suspicious for ureteritis. Correlate with urinalysis. 5. Complex cystic lesion or cluster of adjacent cysts within the interpolar right kidney measuring up to 1.9 cm is nonspecific. This should be further evaluated with ultrasound and possibly with CT renal protocol. The above report was generated using voice recognition software. It may contain grammatical, syntax or spelling errors. Laboratory Results 03/03/17 16:25 Red Blood Count 2.83, Mean Corpuscular Volume 95.4, Mean Corpuscular Hemoglobin 31.4, Mean Corpuscular Hemoglobin Concent 33.0, Mean Platelet Volume 9.0, Neutrophils (%) (Auto) 75.9, Lymphocytes (%) (Auto) 16.2, Monocytes (%) (Auto) 7.3, Eosinophils (%) (Auto) 0.2, Basophils (%) (Auto) 0.2, Neutrophils # (Auto) 10.04, Lymphocytes # (Auto) 2.15, Monocytes # (Auto) 0.97, Eosinophils # (Auto) 0.03, Basophils # (Auto) 0.02 03/03/17 16:25 Test 03/03/17 16:25 03/03/17 17:53 White Blood Count 13.24 K/uL (4.8-10.8) Red Blood Count 2.83 M/uL (4.2-5.4) Hemoglobin 8.9 g/dL (12.0-16.0) Hematocrit 27.0 % (37-47) Mean Corpuscular Volume 95.4 fL (80-100) Mean Corpuscular Hemoglobin 31.4 pg (25-34) Mean Corpuscular Hemoglobin Concent 33.0 g/dl (32-36) Platelet Count 233 K/uL (130-400) Mean Platelet Volume 9.0 fL (7.4-10.4) Neutrophils (%) (Auto) 75.9 % Lymphocytes (%) (Auto) 16.2 % Monocytes (%) (Auto) 7.3 % Eosinophils (%) (Auto) 0.2 % Basophils (%) (Auto) 0.2 % Neutrophils # (Auto) 10.04 K/uL (1.4-6.5) Lymphocytes # (Auto) 2.15 K/uL (1.2-3.4) Monocytes # (Auto) 0.97 K/uL (0.11-0.59) Eosinophils # (Auto) 0.03 K/uL (0-0.5) Basophils # (Auto) 0.02 K/uL (0-0.2) RDW Standard Deviation 45.2 fL (36.4-46.3) RDW Coefficient of Variation 13.1 % (11.5-14.5) Immature Granulocyte % (Auto) 0.2 % Immature Granulocyte # (Auto) 0.03 K/uL (0.00-0.02) Polychromasia 1+ Prothrombin Time 10.5 SECONDS (9.0-12.0) Prothromb Time International Ratio 1.0 (0.9-1.1) Activated Partial Thromboplast Time 22.8 SECONDS (21.0-31.0) Partial Thromboplastin Ratio 0.9 Anion Gap 8.0 mmol/L (3-11) Est Creatinine Clear Calc Drug Dose 85.1 ml/min Estimated GFR () 102.9 Estimated GFR (Non- 88.8 BUN/Creatinine Ratio 6.8 (10-20) Calcium Level 8.5 mg/dl (8.5-10.1) Total Bilirubin 0.4 mg/dl (0.2-1) Aspartate Amino Transf (AST/SGOT) 12 U/L (15-37) Alanine Aminotransferase (ALT/SGPT) 14 U/L (12-78) Alkaline Phosphatase 49 U/L (45-117) Total Protein 6.8 gm/dl (6.4-8.2) Albumin 3.7 gm/dl (3.4-5.0) Globulin 3.1 gm/dl (2.5-4.0) Albumin/Globulin Ratio 1.2 (0.9-2) Urine Color YELLOW Urine Appearance CLEAR (CLEAR) Urine pH 5.0 (4.5-7.5) Urine Specific [place] 1.014 (1.000-1.030) Urine Protein NEG (NEG) Urine Glucose (UA) TRACE (NEG) Urine Ketones NEG (NEG) Urine Occult Blood NEG (NEG) Urine Nitrite NEG (NEG) Urine Bilirubin NEG (NEG) Urine Urobilinogen NEG (NEG) Urine Leukocyte Esterase NEG (NEG) Medications Administered Medications (Trade) Dose Ordered Sig/Laurie Route Start Time Stop Time Status Last Admin Dose Admin Sodium Chloride 1,000 ml @ 250 mls/hr Q4H STAT IV 03/03/17 16:08 03/03/17 20:07 DC 03/03/17 16:35 250 MLS/HR Ketorolac Tromethamine (Toradol Inj) 30 mg NOW STAT IV 03/03/17 16:08 03/03/17 16:10 DC 03/03/17 16:37 30 MG Ondansetron HCl (Zofran Inj) 4 mg NOW STAT IV 03/03/17 16:08 03/03/17 16:10 DC 03/03/17 16:34 4 MG Hydromorphone HCl (Dilaudid Inj) 1 mg NOW STAT IV 03/03/17 16:08 03/03/17 16:10 DC 03/03/17 16:35 1 MG Hydromorphone HCl (Dilaudid Inj) 0.5 mg NOW STAT IV 03/03/17 17:43 03/03/17 17:44 DC 03/03/17 17:48 0.5 MG Hydromorphone HCl (Dilaudid Inj) 1 mg NOW STAT IV 03/03/17 19:31 03/03/17 19:33 DC 03/03/17 19:42 1 MG ED Course The patient was seen and examined as above. Her old records are reviewed, specifically her operative record from yesterday. IV lock was initiated. She was hydrated with normal saline solution. She was medicated with Toradol 30 mg , Zofran 4 mg and Dilaudid 1 mg. 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 Laboratory studies were collected including CBC with differential, coags, CMP and urinalysis. Given her recent surgical procedure, CT scan of the abdomen and pelvis with IV contrast was obtained. Laboratory studies noted a slightly elevated white count 13,200, likely related to the stress of the recent surgery. H&H is 8.9, 27.0, this is up from 7.8 and 23.0 postoperatively yesterday. Electrolytes noted a potassium of 3.0, otherwise within normal limits. Renal function and LFTs are not elevated. Urinalysis completely clear. The patient was reassessed. She continued to complain of pain. She was given Dilaudid 0.5 mg IV. She went to CT scan. CT scan noted post-surgical changes. She has extensive pneumoperitoneum, with a large amount of subcutaneous and deep tissue air. There is a mild amount of fluid within the dependent pelvis into the right pericolic gutter, likely reactive were related to the recent ruptured ectopic. There was a corpus luteal cyst noted in the left adnexa, right ureter was mildly dilated with enhancement, concerning for ureteritis, however urinalysis is completely clear and not indicative of infectious process. Nonspecific cystic structure noted in the right kidney. All laboratory and diagnostic imaging findings were reviewed with attending physician, and discussed with bounding the LEAD PRINCIPAL TECHNICAL ARCHITECT cylinder honer, Dr. Ricci. With regards to her recent surgery, the patient's condition appears stable. She does not appear to have any intra-abdominal complications from the surgery including ongoing bleeding, infection or other intra-abdominal pathology. Her issues especially more pain management at this time. Options were discussed with the patient, and she would like to go home. She was given an additional Dilaudid 1 mg IV here in the emergency department. Dr. Ricci feels that it is reasonable that she can go home. The patient was given a small prescription for oral Dilaudid to use for the acute postoperative pain, then a separate prescription for OxyIR to use when the pain becomes more manageable. She reports that she is not scheduled to follow-up with Dr. Lala here locally due to insurance issues, and was instructed that she should follow-up with oncology when she returns home to [facility]. Certainly if her symptoms worsen or her condition deteriorates while she is here she will need to seek immediate medical attention. She expressed understanding of that was agreeable. The patient remained hemodynamically stable while in the emergency department. At discharge, she rated her pain a 4/10. She was given oral fluids in the emergency department which she tolerated. Differential diagnoses entertained included postoperative pain, bleeding, infection, bowel obstruction, UTI, pyelonephritis, ovarian cyst, ovarian torsion , among others. Medical Decision See ED Course. Medication Reconcilliation Current Medication List: was personally reviewed by me Blood Pressure Screening Patient's blood pressure: Normal blood pressure Blood pressure disposition: Did not require urgent referral Impression Primary Impression: Diffuse abdominal pain Additional Impression: Post-operative pain Departure Information Prescriptions Oxycodone Immediate Rel Tab (ROXICODONE IR) 5 Mg Tab 1-2 TAB PO Q4H Y for Severe Pain, #25 TAB For Initial Treatment Prov: Lay Low PA 03/03/17 Hydromorphone Hcl (DILAUDID) 2 Mg Tab 2 MG PO Q4 Y for Pain, #20 TAB For Initial Treatment Prov: Lay Low PA 03/03/17 Referrals No Doctor, Assigned (PCP) Patient Instructions My [facility] Additional Instructions DO NOT drive, drink alcohol, operate machinery, or perform dangerous activities today. You were given medications in the ER that can affect your ability to safely function or operate a vehicle. Dilaudid 2 m tablet every 4 hours as needed for severe pain. Avoid alcohol , operating machinery or dangerous equipment, working on ladders or roofs, DRIVING, making important decisions, or situations where being under the influence may be dangerous. It is recommended to use an [id number] stool softener such as Colace, 100mg twice daily while taking this medication to avoid constipation. Use the Dilaudid for the first 1-2 days, then use Oxy IR. Oxycodone (OxyIR) 5mg: Take 1-2 pills every four hours as needed for breakthrough pain. Avoid alcohol, operating machinery or dangerous equipment, working on ladders or roofs, DRIVING, making important decisions, or situations where being under the influence may be dangerous. It is recommended to use an [id number] stool softener such as Colace, 100mg twice daily while taking this medication to avoid constipation. Ibuprofen(Motrin, Advil) may be used for fever or pain. Use 600mg every six hours as needed. Take with food. Avoid using more than 2400mg in a 24 hour period. Do not use 2400mg per day for more than three consecutive days without physician direction. Prolonged inappropriate use can lead to stomach upset or ulcers. This is available over the counter and typically comes in 200mg tablets. (AND/OR) Acetaminophen(Tylenol) may be used for fever or pain. Use 1000mg every eight hours as needed. Avoid using more than 3000mg in a 24 hour period. This is available over the counter. Read all the package inserts or medication information paperwork provided. If you have any questions or concerns call your primary provider, pharmacist or the ER for assistance. Rest and drink plenty of fluids as tolerated. Slow sips of water or sports drinks are recommended instead of large amounts all at once. Continue current medications. Once your stomach is settled start with a clear liquid diet (jello, soup broth, etc.) and then advance as tolerated. You should avoid full, heavy meals for about 24 hrs from the time your symptoms resolved. Return to the ER immediately for worsening or persistent abdominal pain, vomiting, fevers, chest pains, difficulty breathing, black or bloody stools, worsening of your condition, or as needed. Follow up with gynecology when you return home. Problem Qualifiers
[2017-03-03 20:18] VITALS: BP 109/55; PULSE 69; O2SAT 98
--- NOTE | 2017-03-04 11:33 | Pharmacy Progress Note ---
ED Pharmacist Progress Note Date of Service: Mar 04, 2017. Received call from [facility] pharmacy, requesting clarification on prescribing both hydromorphone and oxycodone po. Per Joanna's note: The patient was given a small prescription for oral Dilaudid to use for the acute postoperative pain, then a separate prescription for OxyIR to use when the pain becomes more manageable Therefore [facility] were [facility].
== END 2017-03-03 20:20 | disposition home or self-care (01) ==
LOC: C.EDB 14:52 → C.EDC 20:20
DX: R10.9 Unspecified abdominal pain (principal); G89.18 Other acute postprocedural pain; J98.2 Interstitial emphysema; F32.9 Major depressive disorder, single episode, unspecified; Z87.59 Personal history of other complications of pregnancy, childbirth and the puerperium; Z90.79 Acquired absence of other genital organ(s); Z90.89 Acquired absence of other organs; Z98.818 Other dental procedure status; Z98.890 Other specified postprocedural states; Z79.899 Other long term (current) drug therapy